=== PATIENT | male | born 1960 | race Caucasian/White ===

== ENCOUNTER 2021-02-23 08:03 | Observation (INO) | payer OTHER, SELFPAY ==
[2021-02-23] VITALS (19 sets, daily range): BP systolic 100–163; BP diastolic 65–112; PULSE 72–158; RESP 17–28; TEMP 35.7–36.8; O2SAT 95–99; BMI 39.6
--- NOTE | ~2021-02-23 | XR_ITS ---
EXAMINATION: XR chest 2V DATE: 02/23/2021 08:39 INDICATION: Shortness of breath TECHNIQUE: PA and lateral views of the chest were obtained. COMPARISON: None FINDINGS: Opacities along the anterior left hemidiaphragm. The cardiomediastinal silhouette is normal. Chronic compression fracture with 20% anterior vertebral body height loss at a lower thoracic vertebral body, unclear whether T11 or T12. IMPRESSION: 1. Opacities at the left lung base most likely related to small paracardial fat pad and associated li ngular atelectasis/scarring versus less likely pneumonia. Reviewed, dictated and finalized at location A. IMPRESSION: 1. Opacities at the left lung base most likely related to small paracardial fat pad and associated lingular atelectasis/scarring versus less likely pneumonia.
--- NOTE | ~2021-02-23 | CT_ITS ---
EXAMINATION: CTA chest PE protocol DATE: 02/23/2021 10:38 INDICATION: Shortness of breath. Chest tightness. TECHNIQUE: Computed tomography angiography (CTA) of the chest was performed with 100 mL Omnipaque-350 intravenous contrast timed to evaluate the pulmonary arteries. Coronal maximum intensity projection 3D-reconstructions were created by the technologist. Automated exposure control and iterative reconst ruction technique were employed. The dose-length product was 940.40 mGy-cm. COMPARISON: Chest 2 views 02/15/2021 FINDINGS: There is mild atelectasis in lingula. No pleural effusion. Cardiomegaly is noted. No perica rdial effusion. There are gallstones in the gallbladder, which is normal in size. There is no pulmona ry embolus. There are chronic compression fractures of T6 and T11. There is mild thoracic spondylosis . IMPRESSION: 1. No pulmonary embolus. Sensitivity is moderately decreased by motion artifact. 2. Cardiomegaly. Reviewed, dictated and finalized at location A. IMPRESSION: 1. No pulmonary embolus. Sensitivity is moderately decreased by motion artifact . 2. Cardiomegaly.
--- NOTE | 2021-02-23 08:21 | ECG_ITS ---
ATRIAL FIBRILLATION WITH RAPID VENTRICULAR RESPONSE LOW QRS VOLTAGE- PRECORDIAL LEADS NONSPECIFIC ST & T-WAVE ABNORMALITY- LAT/HIGH LAT LEADS BASELINE ARTIFACT- I, II, III, AVR, AVF, V3-V6 ABNORMAL ECG Electronically Signed On 02-23-2021 9:32:09 CDT by Gilberto Valdovinos D.O. NO PREVIOUS ECG AVAILABLE FOR COMPARISON [facility]
[2021-02-23] MEDS: dilTIAZem HCl INJ 25 MG/5 ML VIAL 15 MG IV PUSH (08:32)
[2021-02-23 08:52] LABS: Basophils Absolute Auto 0.1 K/mm3 (0.0-0.1); Basophils Percent Auto 0.5 % (0.2-1.2); Eosinophils Absolute Auto 0.2 K/mm3 (0-0.3); Eosinophils Percent Auto 2.1 % (0-4.4); Hematocrit 45.2 % (42.0-52.0); Hemoglobin 14.6 g/dL (14.0-18.0); Immature Granulocyte Absolute 0.02 K/mm3 (0.00-0.031); Immature Granulocyte Percent A 0.2 % (0-0.5); Lymphocytes Absolute Auto 2.96 K/mm3 (0.9-3.2); Lymphocytes Percent Auto 29.8 % (18.3-44.2); Mean Corpuscular HGB Conc 32.3 g/dl (32-36); Mean Corpuscular Hemoglobin 29.9 pg (26-34); Mean Corpuscular Volume 92.4 fl (80-100); Mean Platelet Volume 9.2 fl (7.4-10.4); Monocytes Percent Auto 9.6 % (2.6-8.5); Neutrophils Absolute Auto 5.7 K/mm3 (1.3-6.7); Neutrophils Percent Auto 57.8 % (45.5-73.1); Platelet Count Result 271 k/mm3 (150-375); Red Blood Count 4.89 M/mm3 (4.6-6.20); Red Cell Distribution Width 13.3 % (11.5-14.5); White Blood Count 9.9 K/mm3 (4.5-10.0)
[2021-02-23] MEDS: dilTIAZem HCl INJ 25 MG/5 ML VIAL 10 MG IV PUSH (08:56)
[2021-02-23 09:02] LABS: Prothrombin Time 13.3 Seconds (11.1-14.7)
[2021-02-23 09:03] LABS: Partial Thromboplastin Time 28.9 SECONDS (22.3-36.8)
--- NOTE | 2021-02-23 09:09 | ED.SOB ---
HPI - SOB/Dyspnea General Chief Complaint: Shortness of Breath/Dyspnea Stated Complaint: difficulty breathing Time Seen by Provider: 02/23/21 08:07 History of Present Illness HPI Narrative: Patient is a 60-year-old male who presents ER with shortness of breath. Ongoing for the last 2 days and associated with some tightness in his chest. No sweats or chills. Reports increased edema in his lower extremities which is known. No history of heart failure or irregular heartbeat. Reports he has history of PVCs and underwent a heart cath several years ago that was unremarkable. He is on no medications for high blood pressure or rate control. Related Data Allergies Allergy/AdvReac Type Severity Reaction Status Date / Time No Known Allergies Allergy Verified 02/23/21 13:03 Review of Systems Review of Systems: All systems reviewed & are unremarkable except as noted in HPI and below Constitutional: Constitutional: Denies chills, Denies fever(s) and Denies weakness Cardiovascular: Cardiovascular: Reports chest pain (Tightness), Reports rapid heart rate and Denies radiating jaw, neck or arm pain Respiratory: Respiratory: Denies cough, Reports dyspnea and Denies wheezing Gastrointestinal: Gastrointestinal: Denies nausea and Denies vomiting Musculoskeletal: Comments: Lower extremity edema PMFSH Past Medical History Medical History (Updated 02/23/21 @ 12:46 by Rosetta Smith PA-C) Cholelithiasis Colon cancer Hypertension Premature ventricular contractions Surgical History Surgical History (Updated 02/23/21 @ 09:11 by Peter Garcia MD) History of colectomy History of left heart catheterization Social History Social History (Updated 02/23/21 @ 12:45 by Rosetta Smith PA-C) Social History: The patient lives in [place], [place]. Nonsmoker. Chasidy Estrada is his surrogate decision maker. Code status: Full code. Second hand tobacco smoke exposure: No Alcohol intake: current Drinks per week: 6 Substance use: never Spiritual care concerns: No Exam Narrative: Exam Narrative: GENERAL: Well-appearing, well-nourished, and in no acute distress. HEAD: Normocephalic, atraumatic. CHEST: Clear to auscultation. No respiratory distress. HEART: Tachycardic with irregular regular rate and rhythm. Normal peripheral pulses. ABDOMEN: Soft, nontender, nondistended, normal active bowel sounds. EXTREMITIES: Normal range of motion. 1+ edema. SKIN: Warm, dry, no rash. NEURO: Alert and oriented x3. PSYCH: Normal mood and affect. Course Course Emergency Course: Patient admitted to the IMCU on diltiazem drip as he did not have rate control with 25 mg of IV diltiazem. Cardiology be consulted. Lovenox 1 mg/kg given. CTA negative for PE. Vital Signs Vital signs: Vital Signs Temperature 98.2 F 02/23/21 08:20 Pulse Rate 158 H 02/23/21 08:20 Respiratory Rate 28 H 02/23/21 08:20 Blood Pressure 136/99 H 02/23/21 08:20 Pulse Oximetry 98 02/23/21 08:20 Temperature 96.3 F L 02/23/21 12:38 Pulse Rate 123 H 02/23/21 12:38 Respiratory Rate 17 02/23/21 12:38 Blood Pressure 130/87 02/23/21 12:38 Pulse Oximetry 97 02/23/21 12:38 MDM - SOB/Dyspnea Lab Data Result diagrams: 02/23/21 08:45 02/23/21 08:45 Labs: Lab Results 02/23/21 02/23/21 02/23/21 Range/Units 08:45 08:45 08:45 WBC 9.9 (4.5-10.0) K/mm3 RBC 4.89 (4.6-6.20) M/mm3 Hgb 14.6 (14.0-18.0) g/dL Hct 45.2 (42.0-52.0) % MCV 92.4 (80-100) fl MCH 29.9 (26-34) pg MCHC 32.3 (32-36) g/dl RDW 13.3 (11.5-14.5) % Plt Count 271 (150-375) k/mm3 MPV 9.2 (7.4-10.4) fl Immature Gran % (Auto) 0.2 (0-0.5) % Neut % (Auto) 57.8 (45.5-73.1) % Lymph % (Auto) 29.8 (18.3-44.2) % [place] % (Auto) 9.6 H (2.6-8.5) % Eos % (Auto) 2.1 (0-4.4) % Baso % (Auto) 0.5 (0.2-1.2) % Lymph # (Auto) 2.96 (0.9-3.2) K/mm3 [place] # (Auto) 1.0 H (
[2021-02-23 09:10] LABS: Alanine Aminotransferase 32 U/L (4-50); Albumin Level 4.2 g/dL (3.5-5.1); Alkaline Phosphatase 56 U/L (38-126); Anion Gap 10 mmol/L (8-16); Aspartate Amino Transferase 29 U/L (17-59); Bilirubin,Total 1.2 mg/dL (0.2-1.3); Blood Urea Nitrogen 22 mg/dL (9-20); Calcium 9.5 mg/dL (8.4-10.2); Carbon Dioxide 24 mmol/L (22-30); Chloride 106 mmol/L (98-107); Estimated Glomerular Filt Rate > 60; Glucose 92 mg/dL (75-110); Lipase 101 U/L (23-300); Potassium 3.6 mmol/L (3.4-5.0); Sodium 140 mmol/L (137-145)
[2021-02-23 09:19] LABS: NT Pro B Type Natriuretic Pept 1420 pg/mL (5-100)
[2021-02-23 09:21] LABS: Troponin I < 0.012 ng/mL (0.000-0.034)
[2021-02-23] MEDS: ENOXAPARIN 120 MG/0.8 ML SYRINGE SUB-Q (11:15)
--- NOTE | 2021-02-23 12:48 | ECHO_ITS ---
Patient Info Name: Erasmo Estrada Age: 60 years : 1960 Gender: Male Ht: 69 in Wt: 268 lbs BSA: 2.49 m2 HR: 118 bpm BP: 130 / 87 mmHg Heart Rhythm: Atrial Fibrillation Technical Quality: Poor Exam Date: 02/23/2021 3:28 PM Exam Location: [facility] Pulmonary Exam Room: [facility] Patient Status: Inpatient Admit Date: 02/23/2021 Staff Ordering Physician: Rosetta Smith PA-C [employer] Supervisor [employer]: Molly Dixon RDCS Attending Provider: Tommy Greco MD Referring Physician: Sarah ROSE; Exam Type: CA echo dop color flow w con Study Info Indications - atrial fib cm htn Complete two-dimensional, color flow and Doppler transthoracic echocardiogram is performed with contrast to opacify the left ventricle and to improve the deliniation of the left ventricle endocardial borders. Contrast/Agitated Saline Contrast/Ag. Saline: Definity Amount: 1.00 ml Administered By: Asia Lainez RN Existing IV Access: Yes Reason for Poor Study: patient body habitus Summary 1. Left ventricular chamber dimension is normal. 2. Left ventricular systolic function is normal, estimated at 60-65%. 3. There is mildly increased left ventricular wall thickness. 4. The left ventricular diastolic function is indeterminate. 5. Technically difficult study with limited views. Definity echo contrast utilized. 6. There is no aortic valve stenosis. 7. There is trace mitral valve regurgitation. 8. There is trace tricuspid valve regurgitation. 9. No pulmonary hypertension, estimated pulmonary arterial systolic pressure is 30 mmHg. Left Ventricle Left ventricular chamber dimension is normal. Left ventricular systolic function is normal, estimated at 60-65%. There is mildly increased left ventricular wall thickness. The left ventricular diastolic function is indeterminate. Technically difficult study with limited views. Definity echo contrast utilized. Right Ventricle Right ventricular chamber dimension is normal. Right ventricular systolic function is normal. Left Atria Left atrial chamber dimension is moderate to severely enlarged. Right Atria Right atrial chamber dimension is severely enlarged. Aortic Valve The aortic valve is trileaflet. There is no aortic valve stenosis. There is no aortic valve regurgitation. Pulmonic Valve The pulmonic valve is not well visualized. Mitral Valve The mitral valve has normal leaflets. There is trace mitral valve regurgitation. Tricuspid Valve The tricuspid valve leaflets are not well visualized. There is trace tricuspid valve regurgitation. No pulmonary hypertension, estimated pulmonary arterial systolic pressure is 30 mmHg. Pericardium/Pleural The pericardium appears normal. There is no pericardial effusion. Inferior Vena Cava Normal inferior vena cava with <50% collapse upon inspiration consistent with elevated right atrial pressure, 10 mmHg. Aorta The aortic root size at the sinus of Valsalva is normal. Left Ventricular Outflow Tract Name Value Normal LVOT 2D LVOT Diameter 2.11 cm LVOT Doppler
--- NOTE | 2021-02-23 13:00 | ADMGEN ---
This patient, Erasmo Estrada, was admitted to IMU Room 207-01 on 02/23/21 at 1212. Patient/family oriented to hospital policies and general routines including ID bracelet, bed and alarms, visiting hours, pain management, procedures, bathroom and other care routines, personal items, smoking policy, room service/diet, and visiting hours. Information on how to activate the Rapid Response Team has been discussed. Patient/Family are encouraged to report perceived risks to care and to ask questions if they do not understand what they are told or what they should do.
--- NOTE | 2021-02-23 14:11 | PM.CNCAR ---
Assessment and Plan Assessment and plan (1) Atrial fibrillation with rapid ventricular response: Code(s): I48.91 - Unspecified atrial fibrillation Status: Acute Assessment and Plan: New onset atrial fibrillation with rapid ventricular response highly symptomatic which began between 12 noon and 4:00 p.m. yesterday afternoon. Enoxaparin 1 milligram/kilogram subcutaneous provided in the emergency department 11:15 a.m. less than 24 hours since onset of AFib by symptoms. Patient carries no prior known diagnosis or similar symptoms to his knowledge at any time. If by 2D Echo LV size and function are preserved without significant valve pathology will proceed with elective electrical cardioversion tomorrow morning without KASSANDRA guidance as onset of AFib occurred approximately 24 hours ago with him receiving anticoagulation within that time frame. NPO after midnight. We discussed the risks and benefits of KASSANDRA guidance, electrical cardioversion, medical management. We discussed the pathophysiology of atrial fibrillation the need for systemic anticoagulation prior to cardioversion and indications for for aspirin versus anticoagulation moving forward. All questions answered to his satisfaction. CHADS2 Vasc score 1 (HTN) although CHF sx concern may add to this risk if LV dysfunction score of 2 systemic A/C advised longer term. Regardless, if CV A/C advised for minimum of 30 days post cardioversion followed by ASA 325mg daily thereafter. We discussed bleeding vs CVA risk, risk for tachycardia induced CM and the concept of rate vs rhythm control. For now, continue Diltiazem infusion, add Metoprolol 25mg po q8hr, transition to Apixaban 5mg BID (dose this evening) Care coordination to freire and NPO after midnight. Apnea Link overnight to screen for VI. (2) CHF (congestive heart failure): Code(s): I50.9 - Heart failure, unspecified Status: Acute Assessment and Plan: No prior history of heart failure. However, his progressive dyspnea, fatigue, weight gain, lower extremity edema, and abdominal fullness concerning for heart failure most likely heart failure with preserved ejection fraction although cannot exclude systolic dysfunction. Check 2D echocardiogram to assess LV function, chamber size, valve pathology pulmonary pressures. As patient remains highly symptomatic in atrial fibrillation with RVR will plan to restore sinus rhythm with cardioversion with decision to utilize transesophageal echocardiography based upon 2D echo findings if obtained today. Will give IV Lasix 40 mg IV x1. Check BMP, magnesium, in a.m.. TSH normal 1.140. Elevated BNP may simply be a function of atrial fibrillation with RVR, however, given his clinical symptoms and examined presentation more suggestive of a degree of heart failure. (3) Hypertension: Code(s): I10 - Essential (primary) hypertension Status: Acute Assessment and Plan: Remains elevated. May resume home antihypertensive therapy. History of Present Illness History of Present Illness Consult date/time: Date of service: 02/23/21 14:11 Cardiology consultation at the request of Rosetta Simth NP of the [facility] service for our opinion regarding atrial fibrillation with rapid ventricular response. Requesting physician: Rosetta Smith PA-C Consult reason: atrial fibrillation Reason For Visit: afib rvr Narrative: patient is a very pleasant 60-year-old male with a past medical history significant for colon cancer 2010, hypertension, history of PVC's, and obesity who presents to emergency department with complaints of rapid palpitations, lightheadedness, shortness of breath, fatigue. Patient resides in [place], [place] and has been in this area for the past 8 weeks for work on assignment. 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 He found
--- NOTE | 2021-02-23 15:05 | PM.IMHP ---
H&P: HPI History of Present Illness Date/Time: 02/23/21 15:05 Chief Complaint: Shortness of breath. Narrative: This is a very pleasant 60-year-old male with history of colon cancer, hypertension, and PVCs who presented to the emergency department earlier this morning via private vehicle for evaluation of shortness of breath. The patient is in the area on business and has been here for a couple of months. Sometime yesterday he was out to eat and simply while sitting down eating his meal and watching golf on the television he began to feel short of breath and he felt that his heart was beating quite fast an irregularly. He did not sleep well last night because of these symptoms and due to the fact that his hotel loss power last night in the room was quite warm. Today he was very fatigued and when he began to feel a bit lightheaded with mild midsternal chest tightness he decided to come in for evaluation. He also reports increasing edema in his legs however has until this point blamed his symptoms and the fact that he has been working long hours and standing on concrete most of the day. On arrival to the emergency department his SpO2 was 97% on room air and his heart rate was 151 beats per minute. He was found to be in new onset atrial fibrillation and he is being admitted in this setting. He has no known history of coronary artery disease and in fact he had a cardiac catheterization several years ago which was reportedly unremarkable. No prior history of atrial fibrillation and he maintains that his symptoms today are very different from those he will get when he has his PVCs. He had does snore but typically feels well rested when he wakes. He has never been tested for sleep apnea. No history of thyroid disease. He does not abuse caffeine or alcohol. Review of Systems Review of Systems: Narrative: Twelve systems were reviewed with pertinent positives and negatives as per HPI. No fever. No recent cold or flu symptoms. He denies cough. No history of sleep apnea but reports that he snores quite a bit. He has not had nausea or vomiting. No exertional chest pain. No history of venous thromboembolism. Except as documented, all other systems were reviewed and are negative PMFSH Past Medical History Medical History (Updated 02/23/21 @ 19:27 by Rosetta Smith PA-C) Cholelithiasis Colon cancer (2009) Status post left colectomy. Colonoscopy in 2018 was unremarkable. Hypertension Premature ventricular contractions Surgical History Surgical History (Updated 02/23/21 @ 19:27 by Rosetta Smith PA-C) History of colectomy History of left heart catheterization Unremarkable catheterization after positive stress. History of repair of right rotator cuff History of toe surgery Benign tumor removed from the right 1st toe. Family History Family History (Updated 02/23/21 @ 19:28 by Rosetta Smith PA-C) Mother Hypertension Father Hypertension Acute myocardial infarction Grandparent Carcinoma of colon Social History Social History (Updated 02/23/21 @ 19:29 by Rosetta Smith PA-C) Social History: The patient lives in [place], [place] with his and their 15-year-old grandson. They have 2 daughters. Nonsmoker. Drinks perhaps 1 alcoholic beverage 5 to 6 times a week. No illicit substance use. Chasidy Estrada is his surrogate decision maker. Code status: Full code. Meds Home Medications and Allergies Home Medications Medication Instructions Recorded Confirmed Type ergocalciferol (vitamin D2) 1,250 mcg PO WEEKLY 02/23/21 02/23/21 History [Vitamin D2] losartan-hydrochlorothiazide 1 tablet PO DAILY 02/23/21 02/23/21 History Allergies Allergy/AdvReac Type Severity Reaction Status Date / Time No Known Allergies Allergy Verified 02/23/21 13:03 Vital Signs Vital Signs - 24 hr 02/23/21 08:20 02/23/21 09:00 02/23/21 09:09 Temperature 98.2 F Pulse Rate 144 H 130 H 126 H Respiratory Rate 28 H 2
[2021-02-23] MEDS: METOPROLOL TARTRATE 25 MG TABLET PO ×2 (15:48→21:53)
[2021-02-23] MEDS: FUROSEMIDE INJ 40 MG/4 ML VIAL IV PUSH (15:49)
[2021-02-23] MEDS: POTASSIUM CHLORIDE 20 MEQ TABLET 40 MEQ PO (15:50)
[2021-02-23] MEDS: PERFLUTREN LIPID MICROSPHERES 1.5 ML VIAL DILUTED TO 10 ML TOTAL VOLUME IV PUSH (15:58)
[2021-02-23] MEDS: APIXABAN 5 MG TABLET PO (21:53)
[2021-02-24] VITALS (15 sets, daily range): BP systolic 100–132; BP diastolic 59–74; PULSE 60–88; RESP 12–20; TEMP 36.4–36.9; O2SAT 97–99
[2021-02-24] MEDS: METOPROLOL TARTRATE 25 MG TABLET PO ×2 (05:58→14:33)
[2021-02-24 06:33] LABS: Cholesterol 164 mg/dL (0-200); HDL Direct 55 mg/dL; Triglycerides 135 mg/dL (<150)
[2021-02-24 06:44] LABS: LDL Cholesterol Direct 76 mg/dL
--- NOTE | 2021-02-24 08:57 | PM.PNCARD ---
Progress Note: A&P Assessment and Plan (1) Atrial fibrillation with rapid ventricular response: Code(s): I48.91 - Unspecified atrial fibrillation Status: Acute Assessment and Plan: New onset atrial fibrillation with rapid ventricular response highly symptomatic which began between 12 noon and 4:00 p.m. yesterday afternoon. PT received Enoxaparin 1 milligram/kilogram subcutaneous in the emergency department 11:15 a.m. well less than 24 hours since onset of AFib by symptoms. Patient carries no prior known diagnosis of A.Fib or similar symptoms to his knowledge at any time. Therefore, KASSANDRA guidance not necessary. Once again, at length we discussed management options including rate versus rhythm control strategies. Discussed risks associated with sedation the option to perform cardioversion with Anesthesiology to reduce risk. Patient has suspicion for severe obstructive sleep apnea with an AHI of 41 on apnea link. Furthermore, he has moderate to severe left atrial enlargement both of which will reduce likelihood of durable cardioversion. Therefore, patient has decided that taking risks with sedation for questionable durable maintenance of sinus rhythm is not what he would like to pursue. We discussed chemical cardioversion options such as amiodarone for use very short-term is an option but not what I would recommend longer term unless absolutely necessary. He agrees. I explained this may potentially delayed discharge but if he is asymptomatic, tolerating medications with good rate control he may remain in atrial fibrillation if he is in agreement. He wishes to pursue more conservative route with rate control at this time and if appropriate attempt amiodarone for chemical cardioversion. Discontinue IV diltiazem. Continue oral metoprolol. Will simplify regimen. Depending on heart rate control and symptoms decision to initiate IV amiodarone and did attempt to chemically cardiovert to sinus rhythm may be pursued. Patient may eat is will he does not wish to pursue electrical cardioversion. Continue systemic anticoagulation with Apixaban 5mg BID to give pt options for cardioversion in near future upon return home if remains in A.Fib at discharge or cardioversion. However, as discussed at length, ASA 325mg daily reasonable given CHADS2-Vasc score of 1. If HR controlled, symptoms controlled and tolerating medical therapy, consider discharge home later today or tomorrow morning. Patient in agreement with this preferred plan of care. Further recommendations to follow based on patient's response to therapy. (2) VI (obstructive sleep apnea): Code(s): G47.33 - Obstructive sleep apnea (adult) (pediatric) Status: Acute Assessment and Plan: Apnea link suggest severe VI with AHI 41 discussed at length with the patient. He verbalized understanding of my concerns and recommendations and agrees.. Patient must pursue outpatient sleep study upon return home. He understands and agrees. Discussed preparation of arrhythmias including A.Fib in addition to multiple health risks and reduced quality of life. not only with his VI increased risk for sedation tolerance but reduce anticipated success with electrical CV. (3) CHF (congestive heart failure): Code(s): I50.9 - Heart failure, unspecified Status: Acute Assessment and Plan: No prior history of heart failure. Compensated. Diastolic etiology at presentation due to A.Fib with RVR, untreated VI. Patient did not feel Lasix improved symptoms more than heart rate control in AFib. EF preserved 65%. No further diuresis required. (4) Hypertension: Code(s): I10 - Essential (primary) hypertension Status: Acute Assessment and Plan: Well controlled. Subjective Date/time seen: date of service: 02/24/21 08:57 Follow-up for atrial fibrillation with RVR. Patient states he feels 100% better. Denies shortness of breath, chest p
[2021-02-24] MEDS: APIXABAN 5 MG TABLET PO (09:01)
[2021-02-24] MEDS: hydroCHLOROthiazide 25 MG TABLET PO (09:02)
[2021-02-24] MEDS: LOSARTAN POTASSIUM 100 MG TABLET PO (09:02)
--- NOTE | 2021-02-24 15:44 | PM.DS ---
DS: Admitting Diagnosis Admitting Diagnosis Admitting Diagnosis: Palpitation DS: Discharge Diagnosis Discharge Diagnosis (1) VI (obstructive sleep apnea): Code(s): G47.33 - Obstructive sleep apnea (adult) (pediatric) Status: Acute (2) CHF (congestive heart failure): Code(s): I50.9 - Heart failure, unspecified Status: Acute (3) Cardiomegaly: Code(s): I51.7 - Cardiomegaly Status: Acute (4) Atrial fibrillation with rapid ventricular response: Code(s): I48.91 - Unspecified atrial fibrillation Status: Acute (5) Hypertension: Code(s): I10 - Essential (primary) hypertension Status: Acute DS: Summary Hospital Course Hospital Course: This is a very pleasant 60-year-old male with history of colon cancer, hypertension, and PVCs who presented to the emergency department for evaluation of shortness of breath and palpitation.The patient is in the area on business and has been here for a couple of months. Sometime yesterday he was out to eat and simply while sitting down eating his meal and watching golf on the television he began to feel short of breath and he felt that his heart was beating quite fast an irregularly. He did not sleep well last night because of these symptoms and due to the fact that his hotel loss power last night in the room was quite warm. He was found to be in new onset atrial fibrillation with rapid ventricular rate. He has no history of coronary artery disease and in fact he had a cardiac catheterization several years ago which was unremarkable. No history of prior atrial fibrillation. He did have history of snoring and never tested for sleep apnea. Chest x-ray done on admission showed opacities in the left lung base most likely related to small pericardial fat pad and associated lingular atelectasis/scarring versus less likely pneumonia. Chest CT as was done which showed no pulmonary embolism along with cardiomegaly his laboratory workup was negative along with negative cardiac enzymes. He was started on diltiazem drip and was admitted to the hospital cardiology was consulted and was started on oral metoprolol. He was also started on anticoagulation with Lovenox which was later switched to Eliquis. Thyroid function test was done which came back negative. Apnea link was sat done which showed high AHI suggestive of possible sleep apnea. It was suggested to him to have a formal sleep study done as an outpatient basis for further confirmation of sleep apnea and initiate treatment for it. He was tapered off the diltiazem drip after his atrial fibrillation was controlled and was placed on an oral metoprolol. his symptoms improved with his rate control however he had did remain in atrial fibrillation even at the time of discharge. Echocardiogram was done which showed normal ejection fraction without any significant valvular disease. His symptoms is planned to be discharged home on oral metoprolol and anticoagulation. He is planning to get back to [place] in couple of days and will follow-up with his primary care after that all questions were answered. Time Spent with Patient Time attestation: Total time spent providing and/or coordinating discharge services: 50 minutes Exam Narrative: Exam Narrative: GENERAL: The patient is well developed, not in acute distress HEENT: Nonicteric sclerae, PERRLA, EOMI. Oropharynx clear. Moist mucous membranes. Conjunctivae appear well perfused. CHEST: Chest wall is nontender. HEART: Atrial fibrillation rate controlled on telemetry,no murmur, rubs, or gallops LUNGS: Clear to auscultation bilaterally. no respiratory distress ABDOMEN: Soft, positive bowel sounds, non-tender, no organomegaly. SKIN: No rash, no excessive bruising, petechiae, or purpura. NEUROLOGIC: Cranial nerves II-XII intact, alert and oriented x 3, no gross motor deficits EXTREMITIES: no edema, cyanosis or clubbing DS: Data Data Completed and Pending Labs on day of
== END 2021-02-24 16:39 | disposition home or self-care (01) ==
LOC: ANHED 08:56 → ANHIMU 13:08
PROVIDERS: Physician Assistant; Admitting Provider Internal Medicine; Emergency Provider Emergency Medicine; Visit Provider Internal Medicine
DX: I48.91 Unspecified atrial fibrillation (principal); G47.33 Obstructive sleep apnea (adult) (pediatric); R06.02 Shortness of breath; I11.0 Hypertensive heart disease with heart failure; I50.9 Heart failure, unspecified; E66.9 Obesity, unspecified; Z68.39 Body mass index [BMI] 39.0-39.9, adult; Z85.038 Personal history of other malignant neoplasm of large intestine
CPT/HCPCS: 36415; 71046; 71275; 80053; 80061; 83690; 83880; 84443; 84484; 85025; 85610; 85730; 93005; 94762; 96365; 96366; 96372; 96375; 99285; A9270; C8929; G0378; J1650; J1940; Q9957; Q9967